=== PATIENT | female | born 1965 | race American Indian/Alaskan Native ===

== ENCOUNTER 2019-11-22 14:07 | Emergency (ER) | payer OTHER ==
[2019-11-22 14:28] VITALS: BP 156/100
--- NOTE | 2019-11-22 14:31 | Emergency Department Report ---
Chief Complaint: Extremity Injury, Lower Stated Complaint: RT LEG BRUISING - HPI History of Present Illness: 54 yo F, hx HTN, presents to ED with bruise to right inner thigh. Pt works as an L&D nurse. States yesterday, she had to get up on a stretcher with a patient and hold a prolapsed umbilical for a prolonged amount of time. After getting out of that position, she noticed that she had pain in her right thigh. Today she noticed bruising in the area. States pain has resolved. Denies swelling of the extremity. States she does not remember hitting her leg at work yesterday. - ROS Review of Systems: Comment: All other systems reviewed and negative Constitutional: denies: chills, fever Musculoskeletal: see HPI - Exam Physical Exam: - General Limitations: No Limitations General appearance: alert, in no apparent distress - Head Head exam: Present: atraumatic, normocephalic - Eye Eye exam: Present: normal appearance, EOMI - ENT ENT exam: Present: mucous membranes moist - Neck Neck exam: Present: normal inspection - Respiratory Respiratory exam:Absent: respiratory distress - Cardiovascular Cardiovascular Exam: Present: regular rate, normal rhythm - GI/Abdominal GI/Abdominal exam: Absent: distended - Extremities Exam Extremities exam: quarter-sized bruise on medial aspect on right thigh w/ abrasion in the center of the bruise; no swelling to the extremity; no tenderness present - Neurological Exam Neurological exam: Present: alert, oriented X3 - Psychiatric Psychiatric exam: Present: normal affect, normal mood - Skin Skin exam: Present: ecchymosis to right medial thigh MSE screening note: Focused history and physical exam performed. Due to findings the following was ordered: n/a Pt has abrasion and bruising to right medial thigh. ROM intact. Pt is ambulatory w/o difficulty. Area is nontender. She does not have an emergent medical condition at this time. Outpt f/u advised. Return precautions given. ED Medical Decision Making - Medical Decision Making Pt has abrasion and bruising to right medial thigh. ROM intact. Pt is ambulatory w/o difficulty. Area is nontender. She does not have an emergent medical condition at this time. Outpt f/u advised. Return precautions given. ED Disposition for MSE Clinical Impression: Traumatic ecchymosis of right thigh, Abrasion of right thigh, Hypertension Disposition: MED SCREENING EXAM-LEFT Is pt being admited?: No Condition: Stable Instructions: Contusion in Adults (ED), Abrasion (ED), Hypertension (ED) Referrals: PRIMARY CARE, [Referring] - 3-5 Days WINIFRED ZAMORA MD [Primary Care Provider] - 3-5 Days [facility] [Provider Group] - 3-5 Days Time of Disposition: 14:27
== END 2019-11-22 15:00 | disposition left against medical advice (07) ==
LOC: ED 14:07
DX: S70.11XA Contusion of right thigh, initial encounter (principal); S70.311A Abrasion, right thigh, initial encounter; I10 Essential (primary) hypertension; X58.XXXA Exposure to other specified factors, initial encounter; Y93.89 Activity, other specified; Y92.89 Other specified places as the place of occurrence of the external cause; Y99.8 Other external cause status
CPT/HCPCS: 99282

== ENCOUNTER 2019-12-31 13:54 | Outpatient (CLI) | payer BC ==
[2019-12-31 14:41] LABS: Hematocrit 41.3 % (30.3-42.9); Hemoglobin 13.3 gm/dl (10.1-14.3); Mean Corpuscular HGB Conc 32 % (30-34); Mean Corpuscular Volume 84 fl (79-97); Platelet Count 265 K/mm3 (140-440); Red Blood Count 4.95 M/mm3 (3.65-5.03); Red Cell Distribution Width 13.4 % (13.2-15.2)
[2019-12-31 15:01] LABS: Alanine Aminotransferase 21 units/L (7-56); Albumin 4.7 g/dL (3.9-5); BUN/Creatinine Ratio 17; Blood Urea Nitrogen 12 mg/dL (7-17); Calcium 9.7 mg/dL (8.4-10.2); Hemolysis Index 1
== END 2019-12-31 13:55 | disposition home or self-care (01) ==
LOC: LAB 13:54
PROVIDERS: ATTEND Internal Medicine
DX: Z00.00 Encounter for general adult medical examination without abnormal findings (principal); E11.9 Type 2 diabetes mellitus without complications; E78.5 Hyperlipidemia, unspecified; Z13.29 Encounter for screening for other suspected endocrine disorder; Z13.21 Encounter for screening for nutritional disorder
CPT/HCPCS: 36415; 80053; 82607; 82652; 82670; 83001; 83036; 84436; 84443; 84479; 84481; 85027